=== PATIENT | male | born 1955 | race Two or more races ===

== ENCOUNTER 2024-02-08 04:05 | Inpatient (IN) | payer MEDICARE, OTHER ==
[~2024-02-08] VITALS: Ht 177.8 cm; Wt 87.3 kg
[~2024-02-08 04:05] MED LIST: AMLO10TA80 PO; HYDR50TA39 PO; SEVE800T8 PO
[2024-02-08 04:20] VITALS: RESP 22
[2024-02-08 05:05] LABS: CHLORIDE 108 mEq/L (98-107); POTASSIUM 4.9 mEq/L (3.5-5.1); SODIUM 137 mEq/L (136-145)
[2024-02-08 05:06] LABS: CALCIUM 9.3 mg/dL (8.7-10.4); CARBON DIOXIDE 17 mEq/L (21-32)
[2024-02-08 05:11] LABS: GLUCOSE 122 mg/dL (70-105); UREA NITROGEN BLOOD 91 mg/dL (9-23)
[2024-02-08 05:24] LABS: ETHANOL BLOOD < 10 mg/dL (<10)
[2024-02-08 05:25] LABS: TROPONIN I HIGH SENSITIVITY 59 ng/L (3.0-53)
[2024-02-08 05:39] LABS: HEMOGLOBIN. 9.7 g/dL (14.0-18.0); MEAN CORPUSCULAR HEMOGLOBIN 24.5 pg (28.0-32.0); MEAN CORPUSCULAR HGB CONC 30.1 g/dL (31.0-37.0); MEAN CORPUSCULAR VOLUME 81.3 fL (80.0-94.0); MEAN PLATELET VOLUME 8.1 fl (7.4-10.4); PLATELET 367 x1000/uL (130-400); RED BLOOD CELL COUNT 3.94 mill/uL (4.7-6.1); RED CELL DISTRIBUTION WIDTH 20.5 % (11.6-14.6); WHITE BLOOD COUNT 9.2 x1000/uL (4.5-11.0)
[2024-02-08 05:46] LABS: DIFFERENTIAL COMMENT 1
[2024-02-08] MEDS: SODIUM CHLORIDE 0.9% 250 ML IV NR (05:53)
[2024-02-08] MEDS: PIPERACILLIN/TAZO 3.375G/50ML 50 ML IV NR (05:57)
[2024-02-08] MEDS: FUROSEMIDE 40MG/4ML VIAL IVP NR (05:57)
[2024-02-08 06:18] LABS: INR 0.9; PARTIAL THROMBOPLASTIN TIME 27.6 sec (23.4-31.0); PROTHROMBIN TIME 10.5 sec (9.6-11.0)
[2024-02-08] MEDS ORDERED: MAGNESIUM/ALUMINUM HYDROXIDE/SIMETHICONE 30ML UDC PO PRN (06:30)
[2024-02-08] MEDS ORDERED: ACETAMINOPHEN 325MG TABLET PO PRN ×2 (06:30)
[2024-02-08] MEDS ORDERED: GUAIFENESIN 200MG/10ML SUGAR FREE UDC PO PRN (06:30)
[2024-02-08] MEDS ORDERED: ONDANSETRON HCL 4MG/2ML INJ IV PRN (06:30)
[2024-02-08 06:32] LABS: BG BASE EXCESS -8.8 mmol/L (-2.0-3.0); BG CARBOXYHEMOGLOBIN 0.3 % (0.5-1.5); BG DEOXYHEMOGLOBIN 0.4 % (0.0-5.0); BG FRACTION INSPIRED OXYGEN 100; BG HCO3 ACT 15.7 mmol/L (21.0-28.0); BG METHEMOGLOBIN 0.1 % (0.5-1.5); BG OXYGEN SATURATION 99.6 % (94.0-98.0); BG OXYHEMOGLOBIN 99.2 % (94.0-98.0); BG PCO2 29.5 mmHg (35.0-48.0); BG PH 7.345 (7.350-7.450); BG SAMPLE SITE RIGHT RADIAL; BG TOTAL HEMOGLOBIN 10.1 g/dL (13.5-17.5); BG VENT MODE MASK - BIPAP
[2024-02-08 07:04] LABS: IRON 83 ug/dL (65-175)
[2024-02-08 07:05] LABS: TRIGLYCERIDE 77 mg/dL (0-150)
[2024-02-08 07:06] LABS: LDL CHOLESTEROL 23 mg/dL (5-100)
[2024-02-08 07:07] LABS: CHOLESTEROL 105 mg/dL (<200); HDL CHOLESTEROL 59 mg/dL (>55); TOTAL IRON BINDING CAPACITY 221 ug/dl (250-425)
[2024-02-08 07:11] LABS: THYROID STIMULATING HORMONE 3.66 uIU/mL (0.55-4.78)
[2024-02-08 07:12] LABS: T4 FREE 1.24 ng/dL (0.89-1.76)
[2024-02-08] MEDS: VANCOMYCIN 1G PREMIX 200 ML IV NR (07:18)
[2024-02-08 07:56] VITALS: RESP 18
[2024-02-08] MEDS ORDERED: NITROGLYCERIN 0.4MG TABLET SL SL PRN (08:00)
[2024-02-08] MEDS: INSULIN LISPRO 100 UNITS/ML SUBCUT SCH (08:20)
[2024-02-08] MEDS: ENOXAPARIN 30MG/0.3ML SYR SUBCUT SCH (08:57)
[2024-02-08 09:15] LABS: FOLIC ACID (FOLATE) SERUM 14.05 ng/mL (>5.38); VITAMIN B12 SERUM 696 pg/mL (211-911)
[2024-02-08] MEDS: BLOOD SUGAR DIAGNOSTIC STRIP TEST SCH (09:41)
[2024-02-08] MEDS: SEVELAMER CARBONATE 800 MG TABLET PO SCH (10:16)
[2024-02-08] MEDS: FOLIC ACID/VITAMIN B COMP W-C TABLET PO SCH (10:16)
[2024-02-08] MEDS: NIFEDIPINE XL 60MG TAB PO SCH (10:16)
[2024-02-08] MEDS: ASPIRIN 81MG EC TABLET PO SCH (10:16)
[2024-02-08] MEDS: FAMOTIDINE 20MG TABLET PO SCH (10:16)
[2024-02-08] MEDS: CITRIC ACID/SODIUM CITRATE SOLN 30ML UDC PO SCH (10:17)
[2024-02-08] MEDS: SODIUM BICARBONATE 8.4% 50MEQ/50ML SYR IV NR (10:17)
[2024-02-08] MEDS: INSULIN GLARGINE 100 UNITS/ML SUBCUT SCH (10:33)
[2024-02-08] MEDS: MINOXIDIL 10MG TABLET PO SCH (12:45)
[2024-02-08] MEDS: NITROGLYCERIN OINT 1GM/INCH UDPKT TD SCH (14:19)
[2024-02-08 15:22] LABS: HEPATITIS B SURFACE ANTIGEN NEGATIVE (Negative)
[2024-02-08 15:38] LABS: ANISOCYTOSIS 2+; PLATELET ESTIMATE NORMAL
[2024-02-08 15:42] LABS: CLARITY URINE CLEAR (CLEAR); COLOR URINE YELLOW (YELLOW); GLUCOSE URINE TRACE (NEGATIVE); KETONES URINE NEGATIVE (NEGATIVE); LEUKOCYTE ESTERASE URINE NEGATIVE (NEGATIVE); NITRITE URINE NEGATIVE (NEGATIVE); OCCULT BLOOD URINE 2+ (NEGATIVE); PH URINE 5.5 (4.5-8.0); PROTEIN URINE 3+ (NEGATIVE); SPECIFIC GRAVITY URINE 1.015 (1.005-1.030); UROBILINOGEN URINE 0.2 E.U./dL (0.2-1.0)
[2024-02-08 15:43] LABS: *AMPHETAMINES SCREEN URINE NEGATIVE (NEGATIVE); *BARBITURATES SCREEN URINE NEGATIVE (NEGATIVE); *BENZODIAZEPINES SCREEN URINE NEGATIVE (NEGATIVE); *COCAINE SCREEN URINE NEGATIVE (NEGATIVE); METHADONE URINE SCREEN NEGATIVE (NEGATIVE)
[2024-02-08 15:43] LABS: HEPATITIS A AB IGM NEGATIVE (Negative); HEPATITIS B CORE AB IGM NEGATIVE (Negative)
[2024-02-08 15:44] LABS: CANNABINOID URINE SCREEN NEGATIVE (NEGATIVE); ECSTASY MDMA SCREEN URINE NEGATIVE (NEGATIVE); OPIATES URINE SCREEN NEGATIVE (NEGATIVE); PHENCYCLIDINE URINE SCREEN NEGATIVE (NEGATIVE)
[2024-02-08 15:44] LABS: HEPATITIS C AB NON REACTIVE (Neg) (Negative)
[2024-02-08 16:00] VITALS: BP 141/67; PULSE 75; PULSE 78; RESP 17; RESP 24; TEMP 36.3068; TEMP 36.33624; O2SAT 99
[2024-02-08 16:18] LABS: BACTERIA URINE 2+; SQUAMOUS EPITHELIAL CELL URINE FEW /lpf (RARE/1+); WBC URINE 0-2 /hpf (0-2)
[2024-02-08] MEDS: METOLAZONE 10MG TABLET PO NR (16:42)
[2024-02-08] MEDS ORDERED: TAMS-11 PO (17:01)
[2024-02-08] MEDS ORDERED: METO2.5T2 MT (17:01)
[2024-02-08] MEDS ORDERED: FERR325T23 MT (17:01)
[2024-02-08] MEDS ORDERED: ASPI-1497 MT (17:01)
[2024-02-08] MEDS ORDERED: CLON1PAT10 TP (17:01)
[2024-02-08] MEDS ORDERED: FERR325T6 PO (17:01)
[2024-02-08] MEDS ORDERED: ATOR20TA65 MT (17:01)
[2024-02-08] MEDS ORDERED: CALC30CA PO (17:01)
[2024-02-08] MEDS ORDERED: ISOS120T13 MT (17:01)
[2024-02-08] MEDS ORDERED: METO-396 MT (17:01)
[2024-02-08 17:16] LABS: CREATINE KINASE MB FRACTION 7.9 ng/mL (0.5-3.6)
[2024-02-08 18:00] VITALS: BP 152/70; PULSE 71; RESP 18; O2SAT 100
[2024-02-08 20:00] VITALS: BP 166/80; PULSE 73; RESP 19; TEMP 36.83628; O2SAT 100
[2024-02-08] MEDS ORDERED: ZOLPIDEM TARTRATE 5MG TABLET PO PRN (21:00)
[2024-02-08] MEDS: FUROSEMIDE 40MG/4ML VIAL IVP SCH (21:17)
[2024-02-08] MEDS: DOXAZOSIN MESYLATE 4MG TABLET PO SCH (21:18)
[2024-02-08 22:00] VITALS: BP 185/91; PULSE 76; RESP 16; O2SAT 100
[2024-02-08] MEDS: CLONIDINE 0.1MG TABLET PO PRN (22:36)
[2024-02-08 23:18] LABS: CREATINE KINASE MB FRACTION 8.2 ng/mL (0.5-3.6)
[2024-02-09] VITALS (18 sets, daily range): BP systolic 143–193; BP diastolic 68–110; PULSE 66–86; RESP 10–23; TEMP 36.44736–37.00296; O2SAT 94–100
[2024-02-09] MEDS: CLONIDINE 0.2MG TABLET PO NR (00:33)
[2024-02-09 06:10] LABS: CHLORIDE 108 mEq/L (98-107); POTASSIUM 5.1 mEq/L (3.5-5.1); SODIUM 140 mEq/L (136-145)
[2024-02-09 06:11] LABS: CARBON DIOXIDE 22 mEq/L (21-32)
[2024-02-09 06:16] LABS: GLUCOSE 51 mg/dL (70-105)
[2024-02-09 06:17] LABS: UREA NITROGEN BLOOD 99 mg/dL (9-23)
[2024-02-09 06:18] LABS: ALANINE AMINOTRANSFERASE < 7 IU/L (10-49); ALBUMIN 3.1 g/dL (3.2-4.8); ASPARTATE AMINOTRANSFERASE 15 IU/L (<34); CREATINE KINASE 743 IU/L (46-171); PROTEIN TOTAL 5.8 g/dL (6.0-8.3)
[2024-02-09 06:19] LABS: BILIRUBIN DIRECT 0.1 mg/dL (<=3.0); BILIRUBIN TOTAL 0.3 mg/dL (0.1-1.0); PHOSPHORUS 7.5 mg/dL (2.5-4.9)
[2024-02-09 06:40] LABS: EOSINOPHILS % 4.7 % (0.0-5.0); HEMATOCRIT. 25.5 % (42.0-52.0); LYMPHOCYTES % 19.4 % (20.0-50.0); MEAN CORPUSCULAR HEMOGLOBIN 25.5 pg (28.0-32.0); MEAN CORPUSCULAR HGB CONC 31.5 g/dL (31.0-37.0); MEAN PLATELET VOLUME 7.2 fl (7.4-10.4); MONOCYTES % 10.8 % (2.0-8.0); NEUTROPHILS % 64.1 % (40.0-76.0); PLATELET 269 x1000/uL (130-400); RED BLOOD CELL COUNT 3.15 mill/uL (4.7-6.1); RED CELL DISTRIBUTION WIDTH 20.8 % (11.6-14.6); WHITE BLOOD COUNT 6.7 x1000/uL (4.5-11.0)
[2024-02-09 06:44] LABS: DIFFERENTIAL COMMENT 1
[2024-02-09 06:48] LABS: CREATININE 9.6 mg/dL (0.6-1.3)
[2024-02-09] MEDS: LIDOCAINE HCL 1% 10 MG/ML 10ML VIAL ONE (08:13)
[2024-02-09] MEDS: DEXTROSE 50% WATER 50ML SYRINGE IV PRN (08:41)
[2024-02-09] MEDS ORDERED: LIDOCAINE HCL 1% 20ML VIAL ONE (09:15)
[2024-02-09 17:04] LABS: HEMATOCRIT. 27.9 % (42.0-52.0); HEMOGLOBIN. 8.7 g/dL (14.0-18.0); MEAN CORPUSCULAR HEMOGLOBIN 25.7 pg (28.0-32.0); MEAN CORPUSCULAR HGB CONC 31.3 g/dL (31.0-37.0); MEAN CORPUSCULAR VOLUME 82.4 fL (80.0-94.0); MEAN PLATELET VOLUME 7.6 fl (7.4-10.4); PLATELET 271 x1000/uL (130-400); RED BLOOD CELL COUNT 3.39 mill/uL (4.7-6.1); RED CELL DISTRIBUTION WIDTH 20.9 % (11.6-14.6); WHITE BLOOD COUNT 7.1 x1000/uL (4.5-11.0)
[2024-02-09 17:13] LABS: DIFFERENTIAL COMMENT 1
[2024-02-09 17:34] LABS: PLATELET ESTIMATE NORMAL
[2024-02-09] MEDS: ATORVASTATIN CALCIUM 40MG TABLET PO SCH (21:38)
[2024-02-10] VITALS (14 sets, daily range): BP systolic 126–170; BP diastolic 65–114; PULSE 84–98; RESP 12–23; TEMP 36.114–37.11408; O2SAT 95–100
[2024-02-10 06:41] LABS: HEMATOCRIT. 27.7 % (42.0-52.0); HEMOGLOBIN. 8.7 g/dL (14.0-18.0); MEAN CORPUSCULAR HEMOGLOBIN 25.3 pg (28.0-32.0); MEAN CORPUSCULAR HGB CONC 31.3 g/dL (31.0-37.0); MEAN CORPUSCULAR VOLUME 80.8 fL (80.0-94.0); MEAN PLATELET VOLUME 7.4 fl (7.4-10.4); PLATELET 293 x1000/uL (130-400); RED BLOOD CELL COUNT 3.43 mill/uL (4.7-6.1); RED CELL DISTRIBUTION WIDTH 20.4 % (11.6-14.6); WHITE BLOOD COUNT 7.3 x1000/uL (4.5-11.0)
[2024-02-10 06:48] LABS: CHLORIDE 107 mEq/L (98-107); POTASSIUM 4.8 mEq/L (3.5-5.1); SODIUM 141 mEq/L (136-145)
[2024-02-10 06:49] LABS: CALCIUM 9.2 mg/dL (8.7-10.4); CARBON DIOXIDE 22 mEq/L (21-32)
[2024-02-10 06:54] LABS: UREA NITROGEN BLOOD 78 mg/dL (9-23)
[2024-02-10 06:56] LABS: DIFFERENTIAL COMMENT 1; PHOSPHORUS 6.7 mg/dL (2.5-4.9)
[2024-02-10 07:46] LABS: CREATININE 8.7 mg/dL (0.6-1.3)
[2024-02-10 07:47] LABS: GLUCOSE 43 mg/dL (70-105)
[2024-02-10 08:45] LABS: ANISOCYTOSIS 2+; HYPOCHROMASIA 1+; PLATELET ESTIMATE NORMAL
[2024-02-10 08:47] LABS: MICROCYTOSIS 1+
[2024-02-10] MEDS ORDERED: DIPHENHYDRAMINE 50MG/ML VIAL ONE (09:17)
[2024-02-10] MEDS ORDERED: VERAPAMIL HCL 2.5 MG/1 ML 2ML VIAL IV ONE (09:17)
[2024-02-10] MEDS ORDERED: IODIXANOL 320MG/ML 100 ML BOTTLE IV ONE (09:17)
[2024-02-10] MEDS ORDERED: HEPARIN 1000 UNITS/ML 10ML ONE (09:17)
[2024-02-10] MEDS ORDERED: LIDOCAINE HCL 1% 10 MG/ML 10ML VIAL ONE (09:17)
[2024-02-10] MEDS ORDERED: FENTANYL CITRATE/PF 50MCG/ML 2ML VIAL ONE (09:54)
[2024-02-10] MEDS ORDERED: MIDAZOLAM HCL 2 MG/2 ML VIAL ONE (09:54)
[2024-02-10] MEDS ORDERED: ACETAMINOPHEN 325MG TABLET PO PRN (10:45)
[2024-02-10] MEDS ORDERED: ATROPINE SULFATE 1MG/10ML SYR IV PRN (10:45)
[2024-02-10] MEDS: IPRATROPIUM/ALBUTEROL 0.5-3(2.5)MG/3ML NEB NEB PRN (11:09)
[2024-02-10] MEDS: FUROSEMIDE 20MG/2ML VIAL IVP NR (11:29)
[2024-02-10] MEDS: FUROSEMIDE 40MG/4ML VIAL IVP NR (11:44)
[2024-02-10] MEDS ORDERED: FUROSEMIDE 20MG/2ML VIAL IVP NR (11:45)
[2024-02-11 02:59] VITALS: BP 145/82; PULSE 104; RESP 20; TEMP 37.00296
[2024-02-11 04:00] VITALS: BP 130/78; PULSE 99; RESP 12; TEMP 36.89184; O2SAT 98
[2024-02-11 06:49] LABS: POTASSIUM 5.1 mEq/L (3.5-5.1)
[2024-02-11 06:50] LABS: CALCIUM 9.1 mg/dL (8.7-10.4)
[2024-02-11 08:00] VITALS: BP 153/94; PULSE 106; RESP 11; TEMP 36.3918; O2SAT 97
[2024-02-11 08:00] LABS: HEMATOCRIT. 26.1 % (42.0-52.0); HEMOGLOBIN. 8.1 g/dL (14.0-18.0); MEAN CORPUSCULAR HEMOGLOBIN 25.1 pg (28.0-32.0); MEAN CORPUSCULAR HGB CONC 30.9 g/dL (31.0-37.0); MEAN CORPUSCULAR VOLUME 81.5 fL (80.0-94.0); MEAN PLATELET VOLUME 7.5 fl (7.4-10.4); PLATELET 276 x1000/uL (130-400); RED CELL DISTRIBUTION WIDTH 20.6 % (11.6-14.6); WHITE BLOOD COUNT 6.9 x1000/uL (4.5-11.0)
[2024-02-11 08:19] LABS: DIFFERENTIAL COMMENT 1
[2024-02-11 10:56] LABS: ANISOCYTOSIS 2+; PLATELET ESTIMATE NORMAL
[2024-02-11 12:00] VITALS: BP 131/98; PULSE 103; RESP 16; TEMP 37.05852; O2SAT 98
[2024-02-11] MEDS: METOPROLOL TARTRATE 25MG TABLET PO SCH (12:09)
[2024-02-11 16:00] VITALS: BP 95/62; PULSE 70; RESP 13; TEMP 36.6696; O2SAT 96
[2024-02-11 20:00] VITALS: BP 139/79; PULSE 82; RESP 15; TEMP 36.89184; O2SAT 97
[2024-02-11] MEDS: DOCUSATE SODIUM 100MG CAPSULE PO PRN (20:50)
[2024-02-12] VITALS (15 sets, daily range): BP systolic 123–153; BP diastolic 65–106; PULSE 78–96; RESP 12–24; TEMP 36.22512–37.00296; O2SAT 95–100
[2024-02-12 09:55] LABS: HEMATOCRIT. 27.6 % (42.0-52.0); HEMOGLOBIN. 8.6 g/dL (14.0-18.0); MEAN CORPUSCULAR HEMOGLOBIN 25.2 pg (28.0-32.0); MEAN CORPUSCULAR HGB CONC 31.2 g/dL (31.0-37.0); MEAN CORPUSCULAR VOLUME 80.9 fL (80.0-94.0); MEAN PLATELET VOLUME 8.2 fl (7.4-10.4); PLATELET 274 x1000/uL (130-400); RED BLOOD CELL COUNT 3.42 mill/uL (4.7-6.1); RED CELL DISTRIBUTION WIDTH 21.2 % (11.6-14.6)
[2024-02-12 09:56] LABS: CHLORIDE 104 mEq/L (98-107); POTASSIUM 5.2 mEq/L (3.5-5.1); SODIUM 137 mEq/L (136-145)
[2024-02-12 09:57] LABS: CALCIUM 9.6 mg/dL (8.7-10.4); CARBON DIOXIDE 21 mEq/L (21-32)
[2024-02-12 10:02] LABS: UREA NITROGEN BLOOD 75 mg/dL (9-23)
[2024-02-12 10:04] LABS: ALANINE AMINOTRANSFERASE 30 IU/L (10-49); ALBUMIN 3.6 g/dL (3.2-4.8); ASPARTATE AMINOTRANSFERASE 116 IU/L (<34); BILIRUBIN DIRECT 0.1 mg/dL (<=3.0); DIFFERENTIAL COMMENT 1; PHOSPHORUS 7.1 mg/dL (2.5-4.9)
[2024-02-12 10:05] LABS: BILIRUBIN TOTAL 0.3 mg/dL (0.1-1.0); PROTEIN TOTAL 6.6 g/dL (6.0-8.3)
[2024-02-12 10:28] LABS: GLUCOSE 37 mg/dL (70-105)
[2024-02-12 10:29] LABS: CREATININE 8.7 mg/dL (0.6-1.3)
[2024-02-12 16:29] LABS: ANISOCYTOSIS 1+; PLATELET ESTIMATE NORMAL
[2024-02-13] VITALS (14 sets, daily range): BP systolic 105–143; BP diastolic 50–103; PULSE 76–87; RESP 17–22; TEMP 36.61404–37.2252; O2SAT 95–99
[2024-02-13] MEDS: MINOXIDIL 2.5MG TABLET PO SCH (00:25)
[2024-02-13 07:09] LABS: CALCIUM 9.2 mg/dL (8.7-10.4); CARBON DIOXIDE 25 mEq/L (21-32); CHLORIDE 104 mEq/L (98-107); POTASSIUM 4.6 mEq/L (3.5-5.1); SODIUM 139 mEq/L (136-145)
[2024-02-13 07:15] LABS: UREA NITROGEN BLOOD 58 mg/dL (9-23)
[2024-02-13 07:44] LABS: GLUCOSE 42 mg/dL (70-105)
[2024-02-13 07:45] LABS: CREATININE 7.5 mg/dL (0.6-1.3)
[2024-02-13 08:14] LABS: HEMATOCRIT. 23.8 % (42.0-52.0); HEMOGLOBIN. 7.7 g/dL (14.0-18.0); MEAN CORPUSCULAR HGB CONC 32.3 g/dL (31.0-37.0); MEAN CORPUSCULAR VOLUME 80.4 fL (80.0-94.0); MEAN PLATELET VOLUME 7.8 fl (7.4-10.4); PLATELET 260 x1000/uL (130-400); RED BLOOD CELL COUNT 2.96 mill/uL (4.7-6.1); WHITE BLOOD COUNT 8.5 x1000/uL (4.5-11.0)
[2024-02-13 08:16] LABS: DIFFERENTIAL COMMENT 1
[2024-02-13 11:15] LABS: PLATELET ESTIMATE NORMAL
[2024-02-13 11:16] LABS: ANISOCYTOSIS 3+; MICROCYTOSIS 2+
[2024-02-13] MEDS: METHYLPREDNISOLONE SOD SUCC 40MG/ML (ACT-O-VIAL) IV SCH (18:45)
[2024-02-14] VITALS (7 sets, daily range): BP systolic 104–124; BP diastolic 51–74; PULSE 71–91; RESP 15–21; TEMP 36.55848–37.16964; O2SAT 97–100
[2024-02-14] MEDS: BUDESONIDE 0.5MG/2ML NEB HHN SCH (04:45)
[2024-02-14] MEDS: IPRATROPIUM/ALBUTEROL 0.5-3(2.5)MG/3ML NEB NEB SCH (12:00)
[2024-02-14] MEDS: EPOETIN ALFA-EPBX 4,000 UNIT/ML VIAL SUBCUT SCH (20:56)
[2024-02-15] VITALS (18 sets, daily range): BP systolic 100–154; BP diastolic 64–116; PULSE 72–98; RESP 16–35; TEMP 36.114–37.39188; O2SAT 93–100
[2024-02-15 07:01] LABS: CHLORIDE 105 mEq/L (98-107); POTASSIUM 5.8 mEq/L (3.5-5.1); SODIUM 139 mEq/L (136-145)
[2024-02-15 07:02] LABS: CARBON DIOXIDE 24 mEq/L (21-32); HEMOGLOBIN. 7.3 g/dL (14.0-18.0); MEAN CORPUSCULAR HGB CONC 30.4 g/dL (31.0-37.0); MEAN CORPUSCULAR VOLUME 82.2 fL (80.0-94.0); MEAN PLATELET VOLUME 8.4 fl (7.4-10.4); PLATELET 287 x1000/uL (130-400); RED BLOOD CELL COUNT 2.92 mill/uL (4.7-6.1); RED CELL DISTRIBUTION WIDTH 21.2 % (11.6-14.6); WHITE BLOOD COUNT 8.5 x1000/uL (4.5-11.0)
[2024-02-15 07:03] LABS: CALCIUM 9.8 mg/dL (8.7-10.4)
[2024-02-15 07:08] LABS: UREA NITROGEN BLOOD 77 mg/dL (9-23)
[2024-02-15 07:10] LABS: PHOSPHORUS 6.8 mg/dL (2.5-4.9)
[2024-02-15 07:15] LABS: CREATININE 8.3 mg/dL (0.6-1.3); GLUCOSE 210 mg/dL (70-105)
[2024-02-15 07:24] LABS: DIFFERENTIAL COMMENT 1
[2024-02-15 12:16] LABS: PLATELET ESTIMATE NORMAL
[2024-02-15 12:17] LABS: ANISOCYTOSIS 3+
[2024-02-16] VITALS (11 sets, daily range): BP systolic 110–129; BP diastolic 72–91; PULSE 69–94; RESP 16–20; TEMP 36.61404–36.83628; O2SAT 91–99
[2024-02-16 06:31] LABS: POTASSIUM 5.1 mEq/L (3.5-5.1)
[2024-02-16 06:32] LABS: CALCIUM 9.5 mg/dL (8.7-10.4)
[2024-02-16 06:45] LABS: CREATININE 7.7 mg/dL (0.6-1.3)
[2024-02-16 07:02] LABS: HEMOGLOBIN. 7.1 g/dL (14.0-18.0); MEAN CORPUSCULAR HEMOGLOBIN 25.6 pg (28.0-32.0); MEAN CORPUSCULAR VOLUME 82.6 fL (80.0-94.0); MEAN PLATELET VOLUME 8.4 fl (7.4-10.4); PLATELET 280 x1000/uL (130-400); RED BLOOD CELL COUNT 2.78 mill/uL (4.7-6.1); RED CELL DISTRIBUTION WIDTH 21.3 % (11.6-14.6); WHITE BLOOD COUNT 10.3 x1000/uL (4.5-11.0)
[2024-02-16 07:50] LABS: DIFFERENTIAL COMMENT 1
[2024-02-16] MEDS: PREDNISONE 20MG TABLET PO SCH (09:04)
[2024-02-16 16:40] LABS: BG BASE EXCESS -1.1 mmol/L (-2.0-3.0); BG CARBOXYHEMOGLOBIN 0.7 % (0.5-1.5); BG DEOXYHEMOGLOBIN 12.7 % (0.0-5.0); BG FRACTION INSPIRED OXYGEN 21; BG HCO3 ACT 21.7 mmol/L (21.0-28.0); BG METHEMOGLOBIN 0.3 % (0.5-1.5); BG OXYGEN SATURATION 87.2 % (94.0-98.0); BG OXYHEMOGLOBIN 86.3 % (94.0-98.0); BG PCO2 28.7 mmHg (35.0-48.0); BG PH 7.497 (7.350-7.450); BG PO2 53.4 mmHg (83.0-108.0); BG SAMPLE SITE RIGHT RADIAL; BG TOTAL HEMOGLOBIN 7.5 g/dL (13.5-17.5); BG VENT MODE ROOM AIR
[2024-02-16 17:13] LABS: ANISOCYTOSIS 3+; PLATELET ESTIMATE NORMAL
[2024-02-17] VITALS (17 sets, daily range): BP systolic 114–146; BP diastolic 63–100; PULSE 67–82; RESP 12–20; TEMP 36.50292–37.11408; O2SAT 92–100
[2024-02-17 07:29] LABS: POTASSIUM 5.4 mEq/L (3.5-5.1)
[2024-02-17 07:38] LABS: PHOSPHORUS 6.4 mg/dL (2.5-4.9)
[2024-02-17 07:39] LABS: CREATININE 8.8 mg/dL (0.6-1.3)
[2024-02-17 07:47] LABS: BASOPHILS % 0.1 % (0.0-2.0); DIFFERENTIAL COMMENT 0; HEMATOCRIT. 22.6 % (42.0-52.0); HEMOGLOBIN. 7.1 g/dL (14.0-18.0); LYMPHOCYTES % 9.7 % (20.0-50.0); MEAN CORPUSCULAR HEMOGLOBIN 25.3 pg (28.0-32.0); MEAN CORPUSCULAR HGB CONC 31.3 g/dL (31.0-37.0); MEAN CORPUSCULAR VOLUME 80.8 fL (80.0-94.0); MEAN PLATELET VOLUME 8.5 fl (7.4-10.4); MONOCYTES % 11.3 % (2.0-8.0); NEUTROPHILS % 78.9 % (40.0-76.0); PLATELET 263 x1000/uL (130-400); RED CELL DISTRIBUTION WIDTH 21.2 % (11.6-14.6)
[2024-02-17] MEDS: NIFEDIPINE XL 30MG TAB PO SCH (08:56)
[2024-02-18] VITALS (16 sets, daily range): BP systolic 127–151; BP diastolic 66–94; PULSE 67–97; RESP 12–22; TEMP 36.3918–37.11408; O2SAT 93–98
[2024-02-18 07:08] LABS: CARBON DIOXIDE 25 mEq/L (21-32); CHLORIDE 100 mEq/L (98-107); POTASSIUM 4.8 mEq/L (3.5-5.1); SODIUM 134 mEq/L (136-145)
[2024-02-18 07:09] LABS: CALCIUM 9.1 mg/dL (8.7-10.4); HEMATOCRIT. 22.2 % (42.0-52.0); MEAN CORPUSCULAR HEMOGLOBIN 25.9 pg (28.0-32.0); MEAN CORPUSCULAR HGB CONC 31.6 g/dL (31.0-37.0); MEAN CORPUSCULAR VOLUME 81.8 fL (80.0-94.0); MEAN PLATELET VOLUME 8.9 fl (7.4-10.4); PLATELET 279 x1000/uL (130-400); RED BLOOD CELL COUNT 2.72 mill/uL (4.7-6.1); RED CELL DISTRIBUTION WIDTH 21.2 % (11.6-14.6)
[2024-02-18 07:14] LABS: GLUCOSE 135 mg/dL (70-105); UREA NITROGEN BLOOD 63 mg/dL (9-23)
[2024-02-18 07:15] LABS: ALANINE AMINOTRANSFERASE 34 IU/L (10-49); ALBUMIN 3.3 g/dL (3.2-4.8); ASPARTATE AMINOTRANSFERASE 37 IU/L (<34)
[2024-02-18 07:16] LABS: BILIRUBIN DIRECT 0.2 mg/dL (<=3.0); BILIRUBIN TOTAL 0.7 mg/dL (0.1-1.0); PHOSPHORUS 5.2 mg/dL (2.5-4.9); PROTEIN TOTAL 6.3 g/dL (6.0-8.3)
[2024-02-18 07:20] LABS: CREATININE 7.3 mg/dL (0.6-1.3)
[2024-02-18] MEDS ORDERED: LIDOCAINE HCL 1% 10 MG/ML 10ML VIAL ONE ×2 (07:20→07:50)
[2024-02-18] MEDS ORDERED: CEFAZOLIN 1000MG PREMIX 50 ML IV ONE (07:29)
[2024-02-18] MEDS: CEFAZOLIN 1000MG PREMIX 50 ML IV NR (07:45)
[2024-02-18 09:21] LABS: DIFFERENTIAL COMMENT 1
[2024-02-18] MEDS: PREDNISONE 20MG TABLET PO SCH (10:26)
[2024-02-18] MEDS: EPOETIN ALFA-EPBX 4,000 UNIT/ML VIAL SUBCUT SCH (21:42)
[2024-02-19] VITALS (14 sets, daily range): BP systolic 117–154; BP diastolic 67–85; PULSE 78–85; RESP 15–19; TEMP 36.6696–37.05852; O2SAT 96–99
[2024-02-19 04:45] LABS: PLATELET ESTIMATE NORMAL
[2024-02-19 09:07] LABS: HEMATOCRIT. 24.2 % (42.0-52.0); HEMOGLOBIN. 8.1 g/dL (14.0-18.0); MEAN CORPUSCULAR HEMOGLOBIN 27.2 pg (28.0-32.0); MEAN CORPUSCULAR HGB CONC 33.4 g/dL (31.0-37.0); MEAN CORPUSCULAR VOLUME 81.4 fL (80.0-94.0); MEAN PLATELET VOLUME 8.8 fl (7.4-10.4); PLATELET 269 x1000/uL (130-400); RED BLOOD CELL COUNT 2.98 mill/uL (4.7-6.1); WHITE BLOOD COUNT 9.6 x1000/uL (4.5-11.0)
[2024-02-19 09:19] LABS: DIFFERENTIAL COMMENT 1
[2024-02-19 09:43] LABS: CALCIUM 8.7 mg/dL (8.7-10.4); CARBON DIOXIDE 23 mEq/L (21-32); CHLORIDE 97 mEq/L (98-107); POTASSIUM 5.2 mEq/L (3.5-5.1); SODIUM 129 mEq/L (136-145)
[2024-02-19 09:45] LABS: UREA NITROGEN BLOOD 77 mg/dL (9-23)
[2024-02-19 09:48] LABS: ALANINE AMINOTRANSFERASE 28 IU/L (10-49); ALBUMIN 3.2 g/dL (3.2-4.8); ASPARTATE AMINOTRANSFERASE 33 IU/L (<34); GLUCOSE 279 mg/dL (70-105)
[2024-02-19 09:49] LABS: BILIRUBIN DIRECT 0.3 mg/dL (<=3.0)
[2024-02-19 09:50] LABS: PHOSPHORUS 6.1 mg/dL (2.5-4.9)
[2024-02-19 09:52] LABS: BILIRUBIN TOTAL 0.8 mg/dL (0.1-1.0)
[2024-02-19 10:13] LABS: CREATININE 8.3 mg/dL (0.6-1.3)
[2024-02-19] MEDS ORDERED: FOLI0.8T53 PO (13:35)
[2024-02-19] MEDS ORDERED: NIFE-33 PO (13:35)
[2024-02-19] MEDS ORDERED: DOXA-15 PO (13:35)
[2024-02-19] MEDS ORDERED: METO25TA6 PO (13:35)
[2024-02-19] MEDS ORDERED: LIP40 PO (13:35)
[2024-02-19 18:00] LABS: ANISOCYTOSIS 2+; PLATELET ESTIMATE NORMAL
[2024-02-19 18:01] LABS: GIANT PLATELETS 1+; HYPOCHROMASIA 1+
== END 2024-02-19 17:00 | disposition home health service (06) | DRG 280 ==
LOC: ER 04:05 → 5EST 05:33 → 3WST 02-10 13:07
PROVIDERS: ADMIT Internal Medicine; ATTEND Internal Medicine
PROC: 5A09357 Assistance with Respiratory Ventilation, Less than 24 Consecutive Hours, Continuous Positive Airway Pressure (ICD-10-PCS; 2024-02-08)
PROC: 5A1D70Z Performance of Urinary Filtration, Intermittent, Less than 6 Hours Per Day (ICD-10-PCS; 2024-02-09)
PROC: 02HV33Z Insertion of Infusion Device into Superior Vena Cava, Percutaneous Approach (ICD-10-PCS; 2024-02-09)
PROC: B548ZZA Ultrasonography of Superior Vena Cava, Guidance (ICD-10-PCS; 2024-02-09)
PROC: 4A023N7 Measurement of Cardiac Sampling and Pressure, Left Heart, Percutaneous Approach (ICD-10-PCS; principal; 2024-02-10)
PROC: B211YZZ Fluoroscopy of Multiple Coronary Arteries using Other Contrast (ICD-10-PCS; 2024-02-10)
PROC: 5A1D70Z Performance of Urinary Filtration, Intermittent, Less than 6 Hours Per Day (ICD-10-PCS; 2024-02-10)
PROC: 5A1D70Z Performance of Urinary Filtration, Intermittent, Less than 6 Hours Per Day (ICD-10-PCS; 2024-02-12)
PROC: 5A1D70Z Performance of Urinary Filtration, Intermittent, Less than 6 Hours Per Day (ICD-10-PCS; 2024-02-13)
PROC: 5A1D70Z Performance of Urinary Filtration, Intermittent, Less than 6 Hours Per Day (ICD-10-PCS; 2024-02-15)
PROC: 5A1D70Z Performance of Urinary Filtration, Intermittent, Less than 6 Hours Per Day (ICD-10-PCS; 2024-02-17)
PROC: 0JH63XZ Insertion of Tunneled Vascular Access Device into Chest Subcutaneous Tissue and Fascia, Percutaneous Approach (ICD-10-PCS; 2024-02-18)
PROC: 02HV33Z Insertion of Infusion Device into Superior Vena Cava, Percutaneous Approach (ICD-10-PCS; 2024-02-18)
PROC: B548ZZA Ultrasonography of Superior Vena Cava, Guidance (ICD-10-PCS; 2024-02-18)
PROC: B5181ZA Fluoroscopy of Superior Vena Cava using Low Osmolar Contrast, Guidance (ICD-10-PCS; 2024-02-18)
PROC: 0JPTXXZ Removal of Tunneled Vascular Access Device from Trunk Subcutaneous Tissue and Fascia, External Approach (ICD-10-PCS; 2024-02-18)
PROC: 30233N1 Transfusion of Nonautologous Red Blood Cells into Peripheral Vein, Percutaneous Approach (ICD-10-PCS; 2024-02-18)
PROC: 5A1D70Z Performance of Urinary Filtration, Intermittent, Less than 6 Hours Per Day (ICD-10-PCS; 2024-02-19)
DX: I21.4 Non-ST elevation (NSTEMI) myocardial infarction (principal); J96.01 Acute respiratory failure with hypoxia; L89.623 Pressure ulcer of left heel, stage 3; L89.613 Pressure ulcer of right heel, stage 3; N18.6 End stage renal disease; I13.2 Hypertensive heart and chronic kidney disease with heart failure and with stage 5 chronic kidney disease, or end stage renal disease; E87.20 Acidosis, unspecified; I16.1 Hypertensive emergency; N17.9 Acute kidney failure, unspecified; Z20.822 Contact with and (suspected) exposure to COVID-19; I50.9 Heart failure, unspecified; E78.5 Hyperlipidemia, unspecified; D64.9 Anemia, unspecified; I27.20 Pulmonary hypertension, unspecified; E10.51 Type 1 diabetes mellitus with diabetic peripheral angiopathy without gangrene; E10.649 Type 1 diabetes mellitus with hypoglycemia without coma; N50.89 Other specified disorders of the male genital organs; E10.22 Type 1 diabetes mellitus with diabetic chronic kidney disease; I25.10 Atherosclerotic heart disease of native coronary artery without angina pectoris; Z79.4 Long term (current) use of insulin; Z95.1 Presence of aortocoronary bypass graft; Z99.2 Dependence on renal dialysis; Z99.3 Dependence on wheelchair; Z76.82 Awaiting organ transplant status; Z82.49 Family history of ischemic heart disease and other diseases of the circulatory system; Z83.3 Family history of diabetes mellitus
CPT/HCPCS: 36415; 36556; 36589; 36600; 71045; 76770; 76937; 77001; 80048; 80053; 80061; 80076; 80305; 80320; 81003; 82375; 82550; 82553; 82607; 82728; 82746; 82805; 82962; 83036; 83540; 83550; 83605; 83735; 83880; 84100; 84145; 84439; 84443; 84484; 85025; 86705; 86706; 86709; 86850; 86900; 86920; 87340; 87426; 87804; 90935; 93005; 93306; 93458; 93880; 93970; 94640; 94660; 97162; 97166; 97535; 99291; A6261; C1750; C1752; C1769; C1887; C1893; J0690; J0885; J1200; J1642; J1644; J1650; J1815; J1940; J2250; J2543; J2920; J3010; J3370; J3490; J7512; J7626; P9016; Q9967; G0480